=== PATIENT | male | born 1955 | race Caucasian/White ===

== ENCOUNTER 2024-06-16 21:17 | Emergency (ER) | payer SELFPAY ==
[~2024-06-16] VITALS: Ht 167.6 cm; Wt 63.5 kg
[2024-06-16 21:27] VITALS: BP 132/82; PULSE 100; RESP 18; TEMP 98.7; O2SAT 96
[2024-06-16 22:55] LABS: FLU A ANTIGEN negative (NEGATIVE); FLU B ANTIGEN negative (NEGATIVE)
[2024-06-16] MEDS: NACL 0.9% 1,000 ML IV ONE (23:32)
[2024-06-16] MEDS: ONDANSETRON 4 MG/2 ML VIAL IVP ONE (23:32)
[2024-06-16] MEDS: KETOROLAC 30 MG/ML VIAL IVP ONE (23:34)
[2024-06-17] MEDS ORDERED: ONDA8TAB87 PO (00:39)
[2024-06-17] MEDS ORDERED: IBUP-2213 PO (00:39)
[2024-06-17 01:23] VITALS: BP 132/82; PULSE 100; RESP 18; TEMP 98.7; O2SAT 96
== END 2024-06-17 01:23 | disposition home or self-care (01) ==
LOC: MED 21:17
DX: M79.10 Myalgia, unspecified site (principal); R11.0 Nausea; I10 Essential (primary) hypertension; Z20.822 Contact with and (suspected) exposure to COVID-19
CPT/HCPCS: 87426; 87804; 96361; 96374; 96375; 99284; J1885; J2405; J7030